=== PATIENT | male | born 1945 | race Caucasian/White ===

== ENCOUNTER 2022-05-19 09:28 | Day surgery (SDC) | payer MEDICARE ==
[2022-05-19] MEDS ORDERED: LACTATED RINGERS 1,000 ML IV ONE (10:05)
--- NOTE | 2022-05-19 10:26 | ANESTHESIA ---
Pre-Anesthesia VS, & Labs - Diagnosis pos cologuard - Procedure colonoscopy Vital Signs: Temp Pulse Resp BP Pulse Ox O2 Flow Rate 36.4 C L 84 18 139/84 H 100 05/19/22 09:47 05/19/22 09:47 05/19/22 09:47 05/19/22 09:47 05/19/22 09:47 Height: 6 ft 2 in Weight (kg): 87 kg Body Mass Index: 24.6 BMI Classification: Normal - NPO >8 hours Home Medications and Allergies Home Medications: Ambulatory Orders Atorvastatin Calcium 40 mg PO DAILY 05/18/22 Levothyroxine [Synthroid] 100 mcg PO QDAC 05/18/22 Losartan Potassium 25 mg PO DAILY 05/18/22 Metoprolol Tartrate [Lopressor] 25 mg PO DAILY 05/18/22 Atorvastatin Calcium 40 mg PO DAILY 05/18/22 Levothyroxine [Synthroid] 100 mcg PO QDAC 05/18/22 Losartan Potassium 25 mg PO DAILY 05/18/22 Metoprolol Tartrate [Lopressor] 25 mg PO DAILY 05/18/22 Allergies/Adverse Reactions: Allergies Allergy/AdvReac Type Severity Reaction Status Date / Time No Known Drug Allergies Allergy Verified 05/18/22 12:38 Anes History & Medical History - Anesthetic History Anesthesia Complications: reports: No previous complications Family history of Anesthesia Complications: Denies Family history of Malignant Hyperthermia: Denies - Medical History Cardiovascular: reports: Hypertension, High cholesterol Pulmonary: reports: None Gastrointestinal: reports: None Urinary: reports: None Musculoskeletal: reports: None Endocrine/Autoimmune: reports: HyPOthyroidism Skin: reports: None - Surgical History General: reports: Colonoscopy Eyes Ears Nose Throat (EENT): reports: Cataracts Exam General: Alert, Oriented x3, Cooperative Dental: WNL Mouth Openin Fingerbreadth Neck Mobility: Normal Mallampati classification: I Thyromental Distance: 4-6 cm Respiratory: Lungs clear Cardiovascular: Regular rate Plan Anesthesia Type: Total IV Consent for Procedure(s) Verified and Reviewed: Yes Code Status: Attempt Resuscitation ASA classification: 2-Mild systemic disease Is this case an emergency?: No
[2022-05-19] MEDS ORDERED: PROPOFOL 500 MG/50 ML 500 MG/50 ML VIAL ONE (11:21)
[2022-05-19] MEDS ORDERED: LACTATED RINGERS 400 ML IV ONE (11:59)
[2022-05-19 12:31] VITALS: BP 125/78
--- NOTE | 2022-05-19 16:21 | ANESTHESIA POST OP EVALUATION ---
Anesthesia Post Eval - Post Anesthesia Eval Vitals: Last Vital Signs Temp 36.5 C 05/19/22 12:30 Pulse 81 05/19/22 12:30 Resp 17 05/19/22 12:30 BP 125/78 05/19/22 12:30 Pulse Ox 100 05/19/22 12:30 O2 Flow Rate CV Function Including HR & BP: Stable Pain Control: Satisfactory Nausea & Vomiting: Negative Mental Status: Baseline Respiratory Status: Airway Patent Hydration Status: Satisfactory Anesthesia Complications: None
== END 2022-05-19 09:29 | disposition home or self-care (01) ==
LOC: SDS 09:28
PROVIDERS: ATTEND Surgery
PROC: 0DBN8ZX Excision of Sigmoid Colon, Via Natural or Artificial Opening Endoscopic, Diagnostic (ICD-10-PCS; principal; 2022-05-19 10:30)
DX: R19.5 Other fecal abnormalities (principal); K63.5 Polyp of colon; K57.30 Diverticulosis of large intestine without perforation or abscess without bleeding; K64.8 Other hemorrhoids; I10 Essential (primary) hypertension; Z87.891 Personal history of nicotine dependence
CPT/HCPCS: 45380; J7120